=== PATIENT | male | born 1945 | race Caucasian/White ===

== ENCOUNTER 2019-02-08 09:59 | Emergency (ER) | payer OTHER ==
[2019-02-08 10:28] LABS: Absolute Lymphocytes (CBC) 1.4 K/uL (0.7-4.9); Basophils % 0.8 % (0-1.3); Hematocrit 39.9 % (39.6-49.0); Lymphocytes % 17.2 % (15.3-44.8); RBC Red Blood Cell Count 4.58 M/uL (4.33-5.43)
[2019-02-08 10:29] LABS: Protime INR 1.09
[2019-02-08] MEDS ORDERED: NA CHLORIDE 0.9% 1,000 ML ONE (10:31)
[2019-02-08 10:41] LABS: ALT/SGPT 27 U/L (12-78); AST/SGOT 16 U/L (15-37); Albumin 3.6 g/dL (3.4-5.0); Alkaline Phosphatase 97 U/L (45-117); BUN Blood Urea Nitrogen 18 mg/dL (7-18); Bicarbonate 26 mmol/L (21-32); Bilirubin Direct 0.2 mg/dL (0-0.2); Bilirubin Total 0.6 mg/dL (0.2-1.0); Glucose Level 159 mg/dL (74-106); Magnesium 1.9 mg/dL (1.8-2.4); NT PRO-BNP 105 pg/mL (<450); Potassium 3.9 mmol/L (3.5-5.1); Protein, Total 7.2 g/dL (6.4-8.2); Sodium Level 142 mmol/L (136-145); Troponin (Emerg Dept Use Only) < 0.02 ng/mL (0.0-0.045)
--- NOTE | 2019-02-08 10:46 | RAD REPORT ---
EXAM DESCRIPTION: RAD - Chest Single View - 02/08/2019 10:17 am CLINICAL HISTORY: Chest pain COMPARISON: None. TECHNIQUE: AP portable chest image was obtained 1012 hours . FINDINGS: No focal lung parenchymal process. Interstitial markings are mildly prominent. This could be baseline or a mild interstitial edema or infiltrate process. Sternotomy wires are in place. Heart and vasculature are normal. No measurable pleural effusion and no pneumothorax. No acute bony abnorma lity seen. No acute aortic findings suspected. IMPRESSION: No focal lung parenchymal process and no significant failure or volume overload. Baseline examination shows mildly prominent interstitial pattern. This could be baseline for the luisito ent or a mild interstitial edema or infiltrate.
--- NOTE | 2019-02-08 10:53 | ER ---
Nurse's Notes [facility] Name: Chandrakant Santos Age: 73 yrs Sex: Male : 1945 Arrival Date: 02/08/2019 Time: 10:03 Bed 26 Private MD: Diagnosis: Chest pain, unspecified;Dyspnea;Type 2 diabetes mellitus Presentation: 02/08 09:58 Presenting complaint: EMS states: pt states he has been having chest pressure that was tw2 uncomfortable for 5 days, no real pain but that he is stressed out about his wifes health as well, he has had 5 stents to the right coronary artery, he was given a total of 324 mg Aspirin, we gave 1 nitro SL spray and he states that relieved the pressure. EKG shows right bundle branch and so has his previous ekgs, pt is also a diabetic, vs stable. Transition of care: patient was not received from another setting of care. Onset of symptoms was February 08, 2019. Risk Assessment: Do you want to hurt yourself or someone else? Patient reports no desire to harm self or others. Initial Sepsis Screen: Does the patient meet any 2 criteria? No. Patient's initial sepsis screen is negative. Does the patient have a suspected source of infection? No. Patient's initial sepsis screen is negative. Care prior to arrival: Medication(s) given: ASA, 81 mg, x 4, Nitroglycerin, 0.4 mg SL x 1. 09:58 Method Of Arrival: EMS: [facility] tw2 09:58 Acuity: JACOBO 3 tw2 Triage Assessment: 10:00 General: Appears in no apparent distress. obese, Behavior is calm, cooperative, tw2 appropriate for age. Pain: Denies pain. EENT: No signs and/or symptoms were reported regarding the EENT system. Neuro: Level of Consciousness is awake, alert, obeys commands, Oriented to person, place, time, situation. Cardiovascular: Heart tones S1 S2 Patient's skin is warm and dry. Respiratory: Airway is patent Respiratory effort is even, unlabored, Respiratory pattern is regular, symmetrical, Breath sounds are clear bilaterally. GI: Abdomen is round non-distended, obese, Bowel sounds present X 4 quads. : Reports burning with urination, urinary frequency. Derm: No signs and/or symptoms reported regarding the dermatologic system. Musculoskeletal: Range of motion: intact in all extremities. Historical: - Allergies: 10:13 PENICILLINS; aj1 - Home Meds: 10:13 aspirin 81 mg Oral chew 1 tab once daily [Active]; atorvastatin 80 mg oral tab 1 tab aj1 once daily [Active]; carboxymethylcellulose sodium ophthalmic ophthalmic 1 drop four times a day [Active]; cetirizine 10 mg oral tab 1 tab once daily [Active]; clotrimazole 1 % Topical crea 2 times per day [Active]; empagliflozin oral 25 mg oral once daily [Active]; finasteride 5 mg oral tab 1 tab once daily [Active]; fluticasone 50 mcg/actuation nasal spsn 1 spray 2 times per day [Active]; gabapentin 300 mg oral cap 3 cap 3 times per day [Active]; insulin aspart subcutaneous 20 units subcutaneous before meals [Active]; insulin detemir subcutaneous 30 units subcutaneous twice a day [Active]; Victoza 2-El 0.6 mg/0.1 mL (18 mg/3 mL) subcutaneous pnij 1.2 mg once daily [Active]; losartan 50 mg oral tab 1 tab once daily [Active]; metformin 1,000 mg Oral tr24 1 tab once daily [Active]; metoprolol tartrate 12.5 mg Oral tab 1 tab 2 times per day [Active]; nitroglycerin 0.4 mg SL subl 1 tab every 5 minutes [Active]; omeprazole 20 mg Oral cpDR 1 cap 2 times per day [Active]; oxybutynin chloride 10 mg Oral tr24 1 tab once daily [Active]; tamsulosin 0.4 mg oral cp24 1 cap once daily [Active]; terbinafine HCl 250 mg oral tab 1 tab once daily [Active]; ticagrelor oral 90 mg oral 2 times per day [Active]; - PMHx: 10:13 Diabetes - NIDDM; neuropathy; Hypertension; CAD; Sleep Apnea; Umbilical hernia; colonic aj1 polyps; Hyperlipidemia; Diverticulitis; GERD; cardiac stents; COPD; familial hypoalphalipoproteinemia; - Immunization history:: Adult Immunizations. - Social history:: Smoking status: . - Ebola Screening: : Patient denies travel to an Ebola-affected area in the 21 days before illness onset. - Family history:: not pertinent. Screenin:06 Abuse screen: Denies threats or abuse. Nutritional screening: No deficits noted. tw2 Tuberculosis screening: No symptoms or risk factors identified. Fall Risk None identified. Assessment: 10:26 Reassessment: see triage assessment. tw2 11:25 Reassessment: Patient appears in no apparent distress at this time. No changes from tw2 previously documented assessment. Patient and/or family updated on plan of care and expected duration. Pain level reassessed. Patient is alert, oriented x 3, equal unlabored respirations, skin warm/dry/pink. 12:29 Reassessment: Patient appears in no apparent distress at this time. No changes from tw2 previously documented assessment. Patient and/or family updated on plan of care and expected duration. Pain level reassessed. Patient is alert, oriented x 3, equal unlabored respirations, skin warm/dry/pink. 12:52 Reassessment: Administrative approval given by Perla Carrasquillo RN at 1250. Accepting ss physician is Dr. Meeta Phillips. Patient to go to ER at [facility]. 13:54 Reassessment: Patient appears in no apparent distress at this time. No changes from tw2 previously documented assessment. Patient and/or family updated on plan of care and expected duration. Pain level reassessed. Patient is alert, oriented x 3, equal unlabored respirations, skin warm/dry/pink. Vital Signs: 10:13 Temp 97.6(TE); tw2 10:16 BP 113 / 64; Pulse 69; Resp 17; Pulse Ox 97% on R/A; tw2 10:25 Weight 112.04 kg (R); Height 5 ft. 8 in. (172.72 cm); Pain 0/10; tw2 11:25 BP 125 / 57; Pulse 54; Resp 17; Pulse Ox 100% on R/A; tw2 12:29 BP 125 / 57; Pulse 73; Resp 17; Pulse Ox 97% on R/A; tw2 13:30 BP 134 / 66; Pulse 57; Resp 17; Pulse Ox 99% on R/A; tw2 10:25 Body Mass Index 37.56 (112.04 kg, 172.72 cm) tw2 ED Course: 09:59 Bed in low position. Call light in reach. Side rails up X 1. cardiac monitor on. Pulse tw2 ox on. NIBP on. 10:03 Patient arrived in ED. aj1 10:05 Sirena Willard, RN is Primary Nurse. tw2 10:05 Arm band placed on. EKG completed in triage. Results shown to MD. tw2 10:05 Inserted saline lock: 20 gauge in right antecubital area, using aseptic technique. tw2 Blood collected. 10:08 EKG done, by ecologist technician. reviewed by Josue Stern MD. tc 10:13 Triage completed. tw2 10:13 Josue Stern MD is Attending Physician. [facility] 10:24 XRAY Chest (1 view) In Process Unspecified. EDMS 13:12 Report given to CARMELO Ruiz at [place] [facility] at this time. tw2 13:54 No provider procedures requiring assistance completed. Patient transferred, IV remains tw2 in place. Administered Medications: 10:46 Drug: NS 0.9% 1000 ml Route: IV; Rate: 125 ml/hr; Site: right antecubital; tw2 13:56 Follow up: IV Status: Infusion continued upon transfer tw2 11:14 Drug: Pepcid 20 mg Route: IVP; Site: right antecubital; tw2 13:55 Follow up: Response: No adverse reaction tw2 11:15 Drug: Lovenox 1 mg/kg Route: Sub-Q; Site: right lower abdomen; tw2 13:55 Follow up: Response: No adverse reaction tw2 Outcome: 10:50 ER care complete, transfer ordered by . [facility] 13:54 Transferred by ground EMS to [facility] tw2 13:54 Condition: stable 13:54 Instructed on the need for transfer. 13:55 Patient left the ED. tw2 Signatures: Dispatcher [employer] EDMS Christina Bowen, RN RN aaron1 Josue Stern MD MD cha Smirch, Shelby RN RN Joan Harrison, customer experience manager EKG Ttc Sirena Willard, CARMELO RN tw2
--- NOTE | 2019-02-08 10:54 | EDPHYS ---
Physician Documentation [facility] Name: Chandrakant Santos Age: 73 yrs Sex: Male : 1945 Arrival Date: 02/08/2019 Time: 10:03 Bed 26 Private MD: ED Physician Josue Stern HPI: 02/08 10:47 This 73 yrs old Male presents to ER via EMS with complaints of Chest Pain > balbina 28 y/o. 10:47 The patient or guardian reports chest pain that is located primarily in the anterior balbina chest wall, bilaterally. Onset: 2 day(s) ago. The pain does not radiate. Associated signs and symptoms: The patient has no apparent associated signs or symptoms. The chest pain is described as a pressure. Severity of pain: At its worst the pain was mild moderate in the emergency department the pain has resolved and did so just prior to arrival. The patient has experienced similar episodes in the past, multiple times. Historical: - Allergies: 10:13 PENICILLINS; aj1 - Home Meds: 10:13 aspirin 81 mg Oral chew 1 tab once daily [Active]; atorvastatin 80 mg oral tab 1 tab aj1 once daily [Active]; carboxymethylcellulose sodium ophthalmic ophthalmic 1 drop four times a day [Active]; cetirizine 10 mg oral tab 1 tab once daily [Active]; clotrimazole 1 % Topical crea 2 times per day [Active]; empagliflozin oral 25 mg oral once daily [Active]; finasteride 5 mg oral tab 1 tab once daily [Active]; fluticasone 50 mcg/actuation nasal spsn 1 spray 2 times per day [Active]; gabapentin 300 mg oral cap 3 cap 3 times per day [Active]; insulin aspart subcutaneous 20 units subcutaneous before meals [Active]; insulin detemir subcutaneous 30 units subcutaneous twice a day [Active]; Victoza 2-El 0.6 mg/0.1 mL (18 mg/3 mL) subcutaneous pnij 1.2 mg once daily [Active]; losartan 50 mg oral tab 1 tab once daily [Active]; metformin 1,000 mg Oral tr24 1 tab once daily [Active]; metoprolol tartrate 12.5 mg Oral tab 1 tab 2 times per day [Active]; nitroglycerin 0.4 mg SL subl 1 tab every 5 minutes [Active]; omeprazole 20 mg Oral cpDR 1 cap 2 times per day [Active]; oxybutynin chloride 10 mg Oral tr24 1 tab once daily [Active]; tamsulosin 0.4 mg oral cp24 1 cap once daily [Active]; terbinafine HCl 250 mg oral tab 1 tab once daily [Active]; ticagrelor oral 90 mg oral 2 times per day [Active]; - PMHx: 10:13 Diabetes - NIDDM; neuropathy; Hypertension; CAD; Sleep Apnea; Umbilical hernia; colonic aj1 polyps; Hyperlipidemia; Diverticulitis; GERD; cardiac stents; COPD; familial hypoalphalipoproteinemia; - Immunization history:: Adult Immunizations. - Social history:: Smoking status: . - Ebola Screening: : Patient denies travel to an Ebola-affected area in the 21 days before illness onset. - Family history:: not pertinent. ROS: 10:47 Constitutional: Negative for fever, chills, and weight loss, Eyes: Negative for injury, balbina pain, redness, and discharge, ENT: Negative for injury, pain, and discharge, Neck: Negative for injury, pain, and swelling, Respiratory: Negative for shortness of breath, cough, wheezing, and pleuritic chest pain, Abdomen/GI: Negative for abdominal pain, nausea, vomiting, diarrhea, and constipation, Back: Negative for injury and pain, : Negative for injury, bleeding, discharge, and swelling, MS/Extremity: Negative for injury and deformity, Skin: Negative for injury, rash, and discoloration, Neuro: Negative for headache, weakness, numbness, tingling, and seizure, Psych: Negative for depression, anxiety, suicide ideation, homicidal ideation, and hallucinations, Allergy/Immunology: Negative for hives, rash, and allergies, Endocrine: Negative for neck swelling, polydipsia, polyuria, polyphagia, and marked weight changes, Hematologic/Lymphatic: Negative for swollen nodes, abnormal bleeding, and unusual bruising. 10:47 Cardiovascular: Positive for chest pain. Exam: 10:47 Constitutional: This is a well developed, well nourished patient who is awake, alert, balbina and in no acute distress. Head/Face: Normocephalic, atraumatic. Eyes: Pupils equal round and reactive to light, extra-ocular motions intact. Lids and lashes normal. Conjunctiva and sclera are non-icteric and not injected. Cornea within normal limits. Periorbital areas with no swelling, redness, or edema. ENT: Nares patent. No nasal discharge, no septal abnormalities noted. Tympanic membranes are normal and external auditory canals are clear. Oropharynx with no redness, swelling, or masses, exudates, or evidence of obstruction, uvula midline. Mucous membranes moist. Neck: Trachea midline, no thyromegaly or masses palpated, and no cervical lymphadenopathy. Supple, full range of motion without nuchal rigidity, or vertebral point tenderness. No Meningismus. Chest/axilla: Normal chest wall appearance and motion. Nontender with no deformity. No lesions are appreciated. Respiratory: Lungs have equal breath sounds bilaterally, clear to auscultation and percussion. No rales, rhonchi or wheezes noted. No increased work of breathing, no retractions or nasal flaring. Abdomen/GI: Soft, non-tender, with normal bowel sounds. No distension or tympany. No guarding or rebound. No evidence of tenderness throughout. Back: No spinal tenderness. No costovertebral tenderness. Full range of motion. Male : Normal genitalia with no discharge or lesions. Skin: Warm, dry with normal turgor. Normal color with no rashes, no lesions, and no evidence of cellulitis. MS/ Extremity: Pulses equal, no cyanosis. Neurovascular intact. Full, normal range of motion. Neuro: Awake and alert, GCS 15, oriented to person, place, time, and situation. Cranial nerves II-XII grossly intact. Motor strength 5/5 in all extremities. Sensory grossly intact. Cerebellar exam normal. Normal gait. Psych: Awake, alert, with orientation to person, place and time. Behavior, mood, and affect are within normal limits. 10:47 Cardiovascular: Rate: normal, Rhythm: regular, Pulses: Pulses are 4+ in bilateral radial, brachial, femoral, popliteal, posterior tibial and and dorsalis pedis arteries.. Heart sounds: normal, normal S1and S2, no S3 or S4, no murmur, no rub, no gallop, Edema: is not appreciated, JVD: is not appreciated. Vital Signs: 10:13 Temp 97.6(TE); tw2 10:16 BP 113 / 64; Pulse 69; Resp 17; Pulse Ox 97% on R/A; tw2 10:25 Weight 112.04 kg (R); Height 5 ft. 8 in. (172.72 cm); Pain 0/10; tw2 11:25 BP 125 / 57; Pulse 54; Resp 17; Pulse Ox 100% on R/A; tw2 12:29 BP 125 / 57; Pulse 73; Resp 17; Pulse Ox 97% on R/A; tw2 13:30 BP 134 / 66; Pulse 57; Resp 17; Pulse Ox 99% on R/A; tw2 10:25 Body Mass Index 37.56 (112.04 kg, 172.72 cm) tw2 MDM: 10:13 Patient medically screened. [facility] 10:49 Data reviewed: vital signs, nurses notes, lab test result(s), EKG, radiologic studies, balbina plain films. 02/08 10:03 Order name: Basic Metabolic Panel; Complete Time: 10:46 02/08 10:03 Order name: CBC with Diff; Complete Time: 10:46 02/08 10:03 Order name: LFT's; Complete Time: 10:46 02/08 10:03 Order name: Magnesium; Complete Time: 10:46 02/08 10:03 Order name: NT PRO-BNP; Complete Time: 10:46 02/08 10:03 Order name: PT-INR; Complete Time: 10:46 02/08 10:03 Order name: Troponin (emerg Dept Use Only); Complete Time: 10:46 02/08 10:03 Order name: XRAY Chest (1 view) 02/08 10:03 Order name: EKG; Complete Time: 10:05 02/08 10:03 Order name: Cardiac monitoring; Complete Time: 10:14 02/08 12:47 Order name: Urine Dipstick--Ancillary (enter results) 02/08 10:03 Order name: EKG - Nurse/Tech; Complete Time: 10:14 02/08 10:03 Order name: IV Saline Lock; Complete Time: 10:14 02/08 10:03 Order name: Labs collected and sent; Complete Time: 10:14 02/08 10:03 Order name: O2 Per Protocol; Complete Time: 10:14 02/08 10:03 Order name: O2 Sat Monitoring; Complete Time: 10:14 aj1 02/08 10:15 Order name: Urine Dipstick-Ancillary (obtain specimen); Complete Time: 12:43 [facility] Administered Medications: 10:46 Drug: NS 0.9% 1000 ml Route: IV; Rate: 125 ml/hr; Site: right antecubital; tw2 13:56 Follow up: IV Status: Infusion continued upon transfer tw2 11:14 Drug: Pepcid 20 mg Route: IVP; Site: right antecubital; tw2 13:55 Follow up: Response: No adverse reaction tw2 11:15 Drug: Lovenox 1 mg/kg Route: Sub-Q; Site: right lower abdomen; tw2 13:55 Follow up: Response: No adverse reaction tw2 Disposition: 02/08/19 10:50 Transfer ordered to [facility]. Diagnosis are Chest pain, unspecified, Dyspnea, Type 2 diabetes mellitus. - Reason for transfer: Higher level of care. - Accepting physician [place] to [place]. - Condition is Fair. - Problem is new. - Symptoms have improved. Signatures: Dispatcher [employer] EDChristina Velasquez, CARMELO RN aj1 Josue Stern MD MD cha Wise, Tara, RN RN tw2 Corrections: (The following items were deleted from the chart) 13:55 10:50 02/08/2019 10:50 Transfer ordered to [address] Diagnosis is Chest pain, unspecified; Dyspnea; Type 2 diabetes mellitus. Reason for transfer: Higher level of care. Accepting physician is to [place]. Condition is Fair. Problem is new. Symptoms have improved. balbina
[2019-02-08] MEDS ORDERED: FAMOTIDINE 20 MG/2 ML VIAL IV ONE (11:11)
[2019-02-08] MEDS ORDERED: ENOXAPARIN 100 MG/ML SYR SQ ONE (11:11)
[2019-02-08 14:57] LABS: Urine Blood 2+ (NEG); Urine Glucose 2+ (NEG); Urine Protein NEGATIVE (NEG); Urine Specific Gravity 1.015 (1.005-1.030)
--- NOTE | 2019-02-08 17:35 | EKG ---
Test Date: 2019-02-08 Test Time: 10:05:20 Weight Control Engineer: SHERIF MEASUREMENT RESULTS: Intervals: Rate: 74 MS: 150 QRSD: 134 QT: 436 QTc: 483 [place]: P: -26 MS: 150 QRS: -50 T: 30 INTERPRETIVE STATEMENTS: Normal sinus rhythm Right bundle branch block Left anterior fascicular block Bifascicular block Inferior infarct, age undetermined Abnormal ECG Compared to ECG 02/15/2007 12:45:14 Right bundle-branch block now present Left anterior fascicular block now present Bifascicular block now present Myocardial infarct finding still present Electronically Signed On 02-08-19 17:33:48 CDT by Olivier Nuñez
== END 2019-02-08 13:55 ==
LOC: ER 09:59
DX: R07.9 Chest pain, unspecified (principal); R06.00 Dyspnea, unspecified; E11.9 Type 2 diabetes mellitus without complications; I10 Essential (primary) hypertension; I25.10 Atherosclerotic heart disease of native coronary artery without angina pectoris; K21.9 Gastro-esophageal reflux disease without esophagitis; J44.9 Chronic obstructive pulmonary disease, unspecified; E78.5 Hyperlipidemia, unspecified; Z88.0 Allergy status to penicillin; Z95.5 Presence of coronary angioplasty implant and graft
CPT/HCPCS: 96361; 93005; 85025; 80048; 36415; 83735; 85610; 80076; 81003; 84484; 83880; 71045; 96372; 96374; 99285; J1650; J7030

== ENCOUNTER 2025-03-17 10:37 | Emergency (ER) | payer OTHER ==
--- OUTSIDE RECORDS SUMMARY | 2025-03-17 10:40 | XMS REPORT | Continuity of Care Document ---
Author Name Unknown Address [address] [facility] [address] [place] [address] [facility] Address [address] [facility] [place] [address] Care Team Providers Care Exchange Consultant Name Role Phone [facility] Primary Car e Physician MARTA THOMAS Attending Clinician Unavail able FATOU Attending Clinician Unavailable Doctor Unassigned, [place] Attending Clinician U Marta Myles MD Attending Clinician Hector Larios CRNA Attending Clinician [phone] Kiran GREWAL, Evelia Tejeda Attending Clinician + MARTA THOMAS Admitting Clinician Unavail able FATOU Admitting Clinician Unavailable Marta Thomas MD Admitting Clinician Payers Payer Name Policy Type Policy Number Effective Date Expirati on Date Source MEDICARE PART A \\T\\ [id number] 2008 00:00:00 Problems Condition Name Condition Details Condition Category Status Onset Date Resolution Date Last Treatment Date Treating Clinician Comments Source Umbilical hernia without obstructio n and without gangrene Umbilical hernia without obstructio n and without gangrene Disease Active 08-19 00:00: 00 Overview: Formattin g of this note might be different from the original. Added automatic ally from request for surgery [id number] [facility] Allergies, Adverse Reactions, Alerts Allergy Name Allergy Type Status Severity Reaction(s) Onset Date Inactive Date Treating Clinician Comments Source Penicill in Propensi ty to adverse reaction s to drug Active Swelling 08-16 00:00: 00 [facility] PENICILL IN DRUG INGREDI Active High Rash 08-16 00:00: 00 [facility] Social History Social Habit Start Date Stop Date Quantity Comments Source History of tobacco use Current smoker [facility] Exposure to SARS-CoV-2 (event) 2021-12-03 00:00:00 2021-12-13 08:58:[address] [facility] Tobacco use and exposure 2021-09-03 00:00:00 2021-09-03 00:00:00 Former smokeless tobacco user [facility] Sex Ass[birth year] At 1945 00:00:00 1945 00:00:[address] [facility] Smoking Status Start Date Stop Date Source Ex-smoker 2021-09-03 00:00:00 2021-09[facility]03 [facility] Ordered Medication Name Filled Medication Name Start Date Stop Date Current Medication? Ordering Clinician Indication Dosage Frequency Signature (SIG) Comments Components Source metFORMIN 500 mg tablet 12-13 09:11: 27 Yes 500mg Take 500 mg by mouth daily. [facility] losartan 50 mg tablet 12-13 09:11: 27 Yes 50mg Take 50 mg by mouth daily. [facility] traMADoL 50 mg tablet 09-06 00:00: 00 Yes [id number] 50mg Take 1 tablet by mouth every 6 (six) hours as needed for Pain (scale 7-10). Indication s: acute pain [facility] finasteride 5 mg tablet 07-11 00:00: 00 Yes TAKE ONE TABLET BY MOUTH DAILY FOR PROSTATE. *DO NOT CRUSH* [facility] insulin aspart U-100 100 unit/mL (3 mL) injection 07-11 00:00: 00 Yes INJECT 15 UNITS UNDER THE SKIN THREE TIMES A DAY BEFORE MEALS 5 MINUTES BEFORE MEALS FOR DIABETES. DO NOT ADMINISTER IF A MEAL IS MISSED [facility] Insulin Detemir 100 unit/mL (3 mL) injection 07-11 00:00: 00 Yes INJECT 33 UNITS UNDER THE SKIN TWICE A DAY [facility] omeprazole 20 mg capsule 2- 00:00: 00 Yes TAKE ONE CAPSULE BY MOUTH TWICE A DAY FOR STOMACH. *DO NOT CRUSH* [facility] empaglifloz in 25 mg Tab 07-10 00:00: 00 Yes .5{tbl} Take 0.5 tablets by mouth daily. [facility] ketotifen 0.025 % (0.035 %) ophthalmic solution 07-10 00:00: 00 Yes INSTILL 1 DROP IN BOTH EYES TWICE A DAY FOR EYE IRRITATION [facility] furosemide 20 mg tablet 2020-06 1-24 00:00: 00 Yes TAKE ONE TABLET BY MOUTH DAILY NEEDED A DIURETIC OR "WATER PILL" [facility] semaglutide 1 mg/dose (4 mg/3 mL) PnIj 2020-06 0-06 00:00: 00 Yes INJECT 1MG UNDER THE SKIN EVERY WEEK [facility] aspirin 81 mg chewable tablet 2020-06 0 00:00: 00 Yes CHEW ONE TABLET BY MOUTH DAILY TO PREVENT BLOOD CLOT [facility] cetirizine 10 mg tablet 2020-06 0 00:00: 00 Yes TAKE ONE TABLET BY MOUTH DAILY NEEDED FOR ALLERGIES [facility] isosorbide mononitrate 60 mg 24 hr tablet 02-27 00:00: 00 Yes TAKE ONE TABLET BY MOUTH DAILY TO PREVENT CHEST PAIN. *DO NOT CRUSH* [facility] gabapentin 400 mg capsule 01-04 00:00: 00 Yes TAKE THREE CAPSULES BY MOUTH THREE TIMES A DAY FOR PAIN OR ANXIETY. TAKE AFTER COMPLETION OF 100MG CAPSULES - IMMEDIATEL Y REPORT MOOD AND BEHAVIOR CHANGES [facility] oxybutynin 10 mg 24 hr tablet 01-04 00:00: 00 Yes TAKE ONE TABLET BY MOUTH DAILY FOR BLADDER. *DO NOT CRUSH* [facility] ticagrelor 90 mg tablet 6-17 00:00: 00 Yes TAKE ONE TABLET BY MOUTH TWICE A DAY TO PREVENT CLOTS *DO NOT MISS ANY DOSES AND ORDER REFILLS ON TIME* [facility] acetaminoph en 500 mg tablet 09-05 00:00: 00 Yes TAKE ONE TABLET BY MOUTH EVERY 6 HOURS NEEDED FOR PAIN OR FEVER [facility] atorvastati n 80 mg tablet 09-05 00:00: 00 Yes TAKE ONE-HALF TABLET BY MOUTH DAILY FOR CHOLESTERO L [facility] Carboxymeth ylcellulose Sodium 1 % DLGl 09-05 00:00: 00 Yes APPLY 1 DROP TO BOTH EYES FOUR TIMES A DAY [facility] lidocaine 5 % (700 mg/patch) patch 09-05 00:00: 00 Yes APPLY 1 PATCH TO THE SKIN DAILY NEEDED FOR UP TO 12 HOURS IN 24 HOUR PERIOD. REMOVE PATCH IF IRRITATION OCCURS. APPLY TO AFFECTED AREA [facility] oxybutynin XL 5 mg 24 hr tablet 09-05 00:00: 00 Yes TAKE ONE TABLET BY MOUTH EVERY 8 HOURS NEEDED FOR BLADDER. *DO NOT CRUSH* [facility] fluticasone propionate 50 mcg/actuati on nasal spray 09-01 00:00: 00 Yes INSTILL 2 SPRAYS IN EACH NOSTRIL TWICE A DAY NEEDED FOR ALLERGIES [facility] Vital Signs Vital Name Observation Time Observation Value Comments S oursima Systolic blood pressure 2021-12-13 14:09:00 133 mm[Hg] [facility] Diastolic blood pressure 2021-12-13 14:09:00 74 mm[Hg] [facility] Heart rate 2021-12-13 14:09:00 84 /min [facility] Body temperature 2021-12-13 14:09:[address] [facility] Respiratory rate 2021-12-13 14:09:00 18 /min [facility] Body weight 2021-12-13 14:09:00 112.038 kg [facility] BMI 2021-12-13 14:09:00 36.48 kg/m2 [facility] Procedures Procedure Date / Time Performed Performing Clinicia n Source EXTERNAL PROVIDER RECORDS 2022-04-21 06:01:00 Doctor Unassigned, [place] [facility] Encounters Start Date/Time End Date/Time Encounter Type Admission Type Attending [facility] Facility Care Department Encounter ID Source 2021-09-04 07:55:14 Outpatient MARTA CRAIG [facility] [id number] [facility] 2021-08-30 17:10:25 Outpatient MARTA CRAIG [facility] [id number] [facility] 2022-04-21 00:00:00 2022-04-21 00:00:00 Orders Only Doctor Unassigned, [place] [facility] 1..840.114 350.1.13.10 4.2.7.2.686 [id number] [facility] 2021-12-13 09:00:00 2021-12-13 09:29:20 Outpatient MARTA CRAIG [facility] [id number] [facility] 2021-12-13 09:00:00 2021-12-13 09:29:20 [facility] 1..840.114 350.1.13.10 4.2.7.2.686 [id number] [facility] 2021-12-13 09:00:00 2021-12-13 09:29:20 Outpatient MARTA CRAIG [facility] [id number] [facility] 2021-10-18 10:30:00 2021-10-18 10:30:00 Office Visit Marta Thomas [facility] 1..840.114 350.1.13.10 4.2.7.2.686 [id number] [facility] 2021-10-18 10:30:00 2021-10-18 10:04:05 Outpatient MARTA CRAIG [facility] [id number] [facility] 2021-10-08 00:00:00 2021-10-08 00:00:00 Orders Only Doctor Unassigned, [place] [facility] 1..840.114 350.1.13.10 4.2.7.2.686 [id number] [facility] 2021-09-19 00:00:00 2021-09-19 00:00:00 Orders Only Doctor Unassigned, [place] [facility] 1.114 350.1.13.10 4.2.7.2.686 [id number] [facility] 2021-09-13 10:30:00 2021-09-13 11:03:07 Outpatient MARTA CRAIG [facility] [id number] [facility] 2021-09-13 10:30:00 2021-09-13 11:03:07 Office Visit Marta Thomas [facility] 1..114 350.1.13.10 4.2.7.2.686 [id number] [facility] 2021-09-06 07:48:00 2021-09-06 12:16:00 Outpatient MARTA CRAIG [facility] [id number] [facility] 2021-09-06 07:48:00 2021-09-06 12:16:00 Hospital Encounter Marta Thomas [facility] 1..114 350.1.13.10 4.2.7.2.686 [id number] [facility] 2021-09-06 07:48:00 2021-09-06 12:16:00 Outpatient MARTA CRAIG [facility] [id number] [facility] 2021-09-06 07:48:00 2021-09-06 12:16:00 Outpatient MARTA CRAIG [facility] [id number] [facility] 2021-09-06 09:27:00 2021-09-06 11:26:00 Anesthesia Event Hector Larios Chelsea Al[place]er [facility] 1.84.114 350.1.13.10 4.2.7.2.686 [id number] [facility] 2021-09-06 08:30:00 2021-09-06 10:30:00 Surgery Marta Thomas [facility] [place] 1.2.840.114 350.1.13.10 4.2.7.2.686 [id number] [facility] 2021-09-04 00:00:00 2021-09-04 00:00:00 Orders Only Doctor Unassigned, [place] [facility] 1.2.840.114 350.1.13.10 4.2.7.2.686 [id number] [facility] 2021-09-03 00:00:00 2021-09-03 00:00:00 Telephone Marta Thomas [facility] 1.2.840.114 350.1.13.10 4.2.7.2.686 [id number] [facility] 2021-09-02 00:00:00 2021-09-02 00:00:[address] [facility] 1.2.840.114 350.1.13.10 4.2.7.2.686 [id number] [facility] 2021-08-16 09:00:00 2021-08-16 10:03:09 Outpatient R MARTA THOMAS [facility] [id number] [facility] 2021-08-16 09:00:00 2021-08-16 10:03:09 Office Visit Marta Thomas [facility] 1.2.840.114 350.1.13.10 4.2.7.2.686 [id number] [facility] 2021-08-16 09:00:00 2021-08-16 10:03:09 Outpatient R MARTA THOMAS [facility] [id number] [facility] 2021-08-16 09:00:00 2021-08-16 10:03:09 Outpatient Regla THOMASMARTA [facility] [id number] [facility] 2021-08-16 09:00:00 2021-08-16 10:03:09 Outpatient MARTA CRAIG [facility] [id number] [facility] 2021-08-16 09:00:00 2021-08-16 10:03:09 Outpatient Regla THOMAS [facility] [id number] [facility] 2021-08-16 00:00:00 2021-08-16 00:00:00 Orders Only Doctor Unassigned, [place] [facility] 1..840.114 350.1.13.10 4.2.7.2.686 [id number] [facility] 2021-08-16 00:00:00 2021-08-16 00:00:00 Prep For Surgery Marta Thomas [facility] 1..840.114 350.1.13.10 4.2.7.2.686 [id number] [facility] 2021-08-05 00:00:00 2021-08-05 00:00:00 Orders Only Doctor Unassigned, [place] [facility] 1..840.114 350.1.13.10 4.2.7.2.686 [id number] [facility] 2021-06-21 10:45:00 2021-06-21 10:45:00 Outpatient MARTA CRAIG [facility] [id number] [facility]
[2025-03-17 11:39] LABS: Absolute Lymphocytes (CBC) 1.0 K/uL (0.7-4.9); Hematocrit 38.1 % (39.6-49.0); Hemoglobin 12.6 g/dL (13.6-17.9); MCH 28.2 pg (27.0-35.0); MCHC 33.2 g/dL (32.0-36.0); MCV 85.0 fL (80-100); MPV 8.6 fL (7.6-11.3); Nucleated RBC Absolute Count 0.0 (0-0); Nucleated Red Blood Cells % 0.1 % (0-0); RBC Red Blood Cell Count 4.48 M/uL (4.33-5.43); White Blood Count 7.80 thou/uL (4.3-10.9)
[2025-03-17 12:00] LABS: ALT/SGPT 23.0 U/L (16-61); AST/SGOT 15.0 U/L (15-37); Albumin 3.1 g/dL (3.4-5.0); Albumin/Globulin Ratio 0.9 (1.1-1.8); Alkaline Phosphatase 70.0 U/L (45-117); Anion Gap 9.7 mEq/L (5.0-15.0); BUN Blood Urea Nitrogen 13.0 mg/dL (7-18); Bilirubin Indirect, Calculated 1.3 mg/dL (0.2-0.8); Globulin 3.3 g/dL (2.3-3.5); Glucose Level 116.0 mg/dL (74-106); NT PRO-BNP 242.0 pg/mL (<450); Potassium 3.7 mEq/L (3.5-5.1); Troponin High Sensitivity 7.5 pg/mL (<58.9)
[2025-03-17 12:07] LABS: Influenza A Ag Negative; Influenza B Ag Negative; SARS-CoV-2 Antigen Rapid Res Negative (Negative)
--- NOTE | 2025-03-17 13:44 | EDPHYS ---
Physician Documentation [facility] Name: Chandrakant Santos Age: 79 yrs Sex: Male : 1945 Arrival Date: 03/17/2025 Time: 10:37 Bed 18 Private MD: ED Physician Josue Stern HPI: 03/17 10:42 This 79 yrs old Male presents to ER via Unassigned with complaints of Flu Symptoms. [facility] 10:42 79-year-old male with a past medical history of diabetes, CHF, 5 cardiac stents, and 2 [facility] coronary bypasses presents to the ER for flulike symptoms for the past 3 days. The patient reports that he has been intermittently " sick" for the past month but that 3 days ago he developed nasal congestion, productive cough, fever, malaise, purulent nasal discharge, and bilateral rib pain. He states that he took NyQuil this morning, went to the [place] clinic, and they told him that his blood pressure was low. They advised that he follow-up in the ER. Denies chest pain.. Historical: - Allergies: 11:04 PENICILLINS; iw - PMHx: 11:04 CAD; cardiac stents; Colonic polyps; COPD; Diabetes - NIDDM; Diverticulitis; familial iw hypoalphalipoproteinemia; GERD; Hyperlipidemia; Hypertension; neuropathy; Sleep Apnea; Umbilical hernia; - PSHx: 11:04 Coronary artery bypass graft; cardiac stents; iw - Immunization history:: Adult Immunizations Pneumococcal vaccine is up to date, Flu vaccine is not up to date. - Infectious Disease History:: Denies. - Social history:: Smoking status: Patient/guardian denies using tobacco, but has a distant history of tobacco abuse. ROS: 10:42 Constitutional: Per HPI 7 Exam: 10:42 Head/Face: Normocephalic, atraumatic. Eyes: Pupils equal round and reactive to light, 7 extra-ocular motions intact. Lids and lashes normal. Conjunctiva and sclera are non-icteric and not injected. Cornea within normal limits. Periorbital areas with no swelling, redness, or edema. Neck: Trachea midline, no thyromegaly or masses palpated, and no cervical lymphadenopathy. Supple, full range of motion without nuchal rigidity, or vertebral point tenderness. No Meningismus. Cardiovascular: Regular rate and rhythm with a normal S1 and S2. No gallops, murmurs, or rubs. Normal PMI, no JVD. No pulse deficits. Abdomen/GI: Soft, non-tender, with normal bowel sounds. No distension or tympany. No guarding or rebound. No evidence of tenderness throughout. Back: No spinal tenderness. No costovertebral tenderness. Full range of motion. Skin: Warm, dry with normal turgor. Normal color with no rashes, no lesions, and no evidence of cellulitis. MS/ Extremity: Pulses equal, no cyanosis. Neurovascular intact. Full, normal range of motion. Neuro: Awake and alert, GCS 15, oriented to person, place, time, and situation. Motor strength 5/5 in all extremities. Sensory grossly intact. Normal gait. 10:42 Constitutional: The patient appears alert, awake, obviously ill, 10:42 ENT: Nose: nasal drainage, that is moderate, and is seen coming from both nares, that is purulent, Posterior pharynx: pooling of secretions, that are moderate, 10:42 Respiratory: the patient does not display signs of respiratory distress, Respirations: normal, Breath sounds: rales, that are mild, are located in both bases, Vital Signs: 11:02 BP 98 / 57; Pulse 65; Resp 18; Temp 97.9; Pulse Ox 97% on R/A; Weight 109.77 kg; Height iw 5 ft. 8 in. ; 12:30 BP 101 / 49; Pulse 67; Resp 18; Pulse Ox 94% ; rg5 13:00 BP 113 / 58; Pulse 63; Resp 18; Pulse Ox 94% ; rg5 13:38 BP 112 / 97; Pulse 61; Resp 18; Pulse Ox 95% ; rg5 11:02 Body Mass Index 36.80 (109.77 kg, 172.72 cm) iw MDM: 10:42 Medical Screening Exam initiated jh7 16:53 Differential diagnosis: viral Infection, bacterial infection, bronchitis, pneumonia CHF 7 exacerbation, COPD, COVID, influenza. Data reviewed: vital signs, nurses notes, lab test result(s), EKG, radiologic studies, plain films. I considered the following discharge prescriptions or medication management in the emergency department Medications were administered in the Emergency Department. See MAR. Independent interpretation of the following test(s) in the Emergency Department EKG: See my EKG interpretation above X-Ray: My interpretation is Mild CHF with no evidence of pneumonia. Historians other than the Patient: Spouse/Significant Other: . Care significantly affected by the following chronic conditions: Diabetes, Hypertension, Congestive Heart Failure. Counseling: I had a detailed discussion with the patient and/or guardian regarding the historical points, exam findings, and any diagnostic results supporting the discharge/admit diagnosis, lab results, radiology results, to return to the emergency department if symptoms worsen or persist or if there are any questions or concerns that arise at home. Special discussion: Based on the history and exam findings, there is no indication for further emergent testing or inpatient evaluation. I discussed with the patient/guardian the need to see the grain elevator worker for further evaluation of the symptoms. 16:56 ED course: The patient and his requested their discharge paperwork before chest 7 x-ray was resulted due to the patient just wanting to go home and rest. Called them as soon as the results were reported and advised follow-up with cardiology since the patient is not on any diuretics at this time.. 03/17 10:56 Order name: Basic Metabolic Panel; Complete Time: 12:17 [facility] 03/17 10:56 Order name: CBC with Diff; Complete Time: 12:17 [facility] 03/17 10:56 Order name: LFT's; Complete Time: 12:17 [facility] 03/17 10:56 Order name: NT PRO-BNP; Complete Time: 12:17 [facility] 03/17 10:56 Order name: Troponin HS; Complete Time: 12:17 [facility] 03/17 10:56 Order name: COVID-19 Ag + Flu A+B Ag; Complete Time: 12:17 [facility] 03/17 10:56 Order name: XRAY Chest (1 view); Complete Time: 16:52 [facility] 03/17 10:56 Order name: Cardiac monitoring; Complete Time: 11:30 [facility] 03/17 10:56 Order name: EKG - Nurse/Tech; Complete Time: 11:30 [facility] 03/17 10:56 Order name: IV Saline Lock; Complete Time: 11:30 [facility] 03/17 10:56 Order name: Labs collected and sent; Complete Time: 11:30 [facility] 03/17 10:56 Order name: O2 Per Protocol; Complete Time: 11:30 [facility] 03/17 10:56 Order name: O2 Sat Monitoring; Complete Time: 11:30 [facility] EC:16 Rate is 61 beats/min. Rhythm is regular. QRS [employer] is Normal. Left axis deviation noted. [facility] ME interval is normal. QRS interval is normal. QT interval is normal. No Q waves. T waves are Normal. No ST changes noted. Clinical impression: Sinus rhythm with sinus arrhythmia and right bundle branch block. Administered Medications: No medications were administered Disposition Summary: 03/17/25 13:43 Discharge Ordered Notes: Location: Home [facility] Problem: new [facility] Symptoms: are unchanged [facility] Condition: Stable [facility] Diagnosis - Acute maxillary sinusitis [facility] - Acute bronchitis, unspecified [facility] Followup: [facility] - With: Private Physician - When: 2 - 3 days - Reason: Recheck today's complaints Discharge Instructions: - Discharge Summary Sheet [facility] - Acute Bronchitis, Adult [facility] - Sinusitis, Adult [facility] - How to Perform a Sinus Rinse [facility] Forms: - Medication Reconciliation Form [facility] - Antibiotic Education [facility] - Patient Portal Instructions [facility] - Leadership Thank You Letter [facility] Prescriptions: - albuterol sulfate 90 mcg/actuation Inhalation HFA Aerosol Inhaler - inhale 1 puff INHALATION route every 4 to 6 hours As needed as needed for [facility] shortness of breath or wheezing; 1 Each; Refills: 0, Product Selection Permitted - Tessalon Perles 100 mg Oral Capsule - take 1 capsule ORAL route every 8 hours As needed; 15 capsule; Refills: 0, [facility] Product Selection Permitted - Doxycycline Hyclate 100 mg Oral Tablet - take 1 tablet ORAL route every 12 hours; 20 tablet; Refills: 0, Product [facility] Selection Permitted Addendum: 03/22/2025 06:55 Co-signature as Attending Physician, Josue Stern MD I agree with the assessment and c hudson plan of care. Signatures: Dispatcher [employer] Josue Yi MD MD cha Williams, Irene, RN RN Carlotta Brooks FNP [employer]IEF OF [employer] [facility] Corrections: (The following items were deleted from the chart) 03/17 10:56 10:56 BASIC METABOLIC PANEL+C.LAB.BRZ ordered. EDLA EDMS 10:56 10:56 CBC+H.LAB.BRZ ordered. EDLA EDMS 10:56 10:56 HEPATIC FUNCTION+C.LAB.BRZ ordered. EDMS EDMS 10:56 10:56 PROBNP+C.LAB.BRZ ordered. EDMS EDMS 10:56 10:56 Troponin High Sensitivity+C.LAB.BRZ ordered. EDMS EDMS 10:56 10:56 COVID-19 Ag + Flu A+B Ag+I.LAB.BRZ ordered. EDMS EDMS 10:57 10:57 Chest Single View+RAD.RAD.BRZ ordered. EDMS EDMS 16:53 10:42 79-year-old male with a past medical history of diabetes, 5 cardiac stents, and 2 7 coronary bypasses presents to the ER for flulike symptoms for the past 3 days. The patient reports that he has been intermittently " sick" for the past month but that 3 days ago he developed nasal congestion, productive cough, fever, malaise, purulent nasal discharge, and bilateral rib pain. He states that he took NyQuil this morning[facility] him that his [facility] pressure was low. They advised that he follow-up in the ER. Denies chest pain.. [id number]
--- NOTE | 2025-03-17 13:44 | ER ---
Nurse's Notes [facility] Name: Chandrakant Santos Age: 79 yrs Sex: Male : 1945 Arrival Date: 03/17/2025 Time: 10:37 Bed 18 Private MD: Diagnosis: Acute maxillary sinusitis;Acute bronchitis, unspecified Presentation: 03/17 11:02 Chief complaint: Patient states: was sent from [place], BP was low, has had cough, iw congestion, fever, rib pain, symptoms off and on for 1 month, this episode came on 3 days ago. Coronavirus screen: Client presents with at least one sign or symptom that may indicate coronavirus-19. Ebola Screen: No symptoms or risks identified at this time. Initial Sepsis Screen: Does the patient meet any 2 criteria? No. Patient's initial sepsis screen is negative. Does the patient have a suspected source of infection? No. Patient's initial sepsis screen is negative. Risk Assessment: Do you want to hurt yourself or someone else? Patient reports no desire to harm self or others. Onset of symptoms was March 14, 2025. 11:02 Method Of Arrival: Ambulatory iw 11:02 Acuity: JACOBO 3 iw Historical: - Allergies: 11:04 PENICILLINS; iw - PMHx: 11:04 CAD; cardiac stents; Colonic polyps; COPD; Diabetes - NIDDM; Diverticulitis; familial iw hypoalphalipoproteinemia; GERD; Hyperlipidemia; Hypertension; neuropathy; Sleep Apnea; Umbilical hernia; - PSHx: 11:04 Coronary artery bypass graft; cardiac stents; iw - Immunization history:: Adult Immunizations Pneumococcal vaccine is up to date, Flu vaccine is not up to date. - Infectious Disease History:: Denies. - Social history:: Smoking status: Patient/guardian denies using tobacco, but has a distant history of tobacco abuse. Screenin:15 [facility] ED Fall Risk Assessment (Adult) History of falling in the last 3 months, me1 including since admission No falls in past 3 months (0 pts) Confusion or Disorientation No (0 pts) Intoxicated or Sedated No (0 pts) Impaired Gait No (0 pts) Mobility Assist Device Used No (0 pt) Altered Elimination No (0 pt) Score/Fall Risk Level 0 - 2 = Low Risk Maintained a safe environment, Provided non-skid footwear, Hourly rounding (assess needs \T\ fall precautionary measures) done. Abuse screen: Denies threats or abuse. Nutritional screening: No deficits noted. Tuberculosis screening: No symptoms or risk factors identified. Assessment: 11:15 General: Appears uncomfortable, ill, well groomed, well developed, well nourished, me1 Behavior is calm, cooperative, appropriate for age, Reports was sent from [place], BP was low, has had cough, congestion, fever, rib pain, symptoms off and on for 1 month, this episode came on 3 days ago. Pain: Complains of pain in right lateral anterior chest and left lateral anterior chest Pain does not radiate. Pain currently is 8 out of 10 on a pain scale. Quality of pain is described as sharp, Pain began 2-3 days ago. Is episodic, Aggravated by cough. Neuro: Level of Consciousness is awake, alert, obeys commands, Oriented to person, place, time, situation, Appropriate for age. Cardiovascular: Patient's skin is warm and dry. Respiratory: Reports cough that is pain with cough since 3 days ago Pain is 8 out of 10 on a pain scale. Airway is patent Respiratory effort is even, unlabored, Respiratory pattern is regular, symmetrical. GI: No signs and/or symptoms were reported involving the gastrointestinal system. Abdomen is non-distended. : No signs and/or symptoms were reported regarding the genitourinary system. EENT: Reports nasal congestion since 3 days ago. Derm: Skin is intact, is healthy with good turgor, Skin is normal. Musculoskeletal: Circulation, motion, and sensation intact. Range of motion: intact in all extremities, Reports body aches. 12:15 Reassessment: No changes from previously documented assessment. Patient and/or family rg5 updated on plan of care and expected duration. Pain level reassessed. Patient is alert, oriented x 3, equal unlabored respirations, skin warm/dry/pink. 13:30 Reassessment: Patient and/or family updated on plan of care and expected duration. Pain rg5 level reassessed. Patient is alert, oriented x 3, equal unlabored respirations, skin warm/dry/pink. Vital Signs: 11:02 BP 98 / 57; Pulse 65; Resp 18; Temp 97.9; Pulse Ox 97% on R/A; Weight 109.77 kg; Height iw 5 ft. 8 in. ; 12:30 BP 101 / 49; Pulse 67; Resp 18; Pulse Ox 94% ; rg5 13:00 BP 113 / 58; Pulse 63; Resp 18; Pulse Ox 94% ; rg5 13:38 BP 112 / 97; Pulse 61; Resp 18; Pulse Ox 95% ; rg5 11:02 Body Mass Index 36.80 (109.77 kg, 172.72 cm) ED Course: 10:42 Patient arrived in ED. al6 10:42 Carlotta Kilpatrick FNP is [facility]. jh7 10:42 Josue Setrn MD is Attending Physician. jh7 11:04 Triage completed. iw 11:05 Arm band placed on. iw 11:15 Patient has correct armband on for positive identification. Bed in low position. Call me1 light in reach. Side rails up X2. Provided Education on: POC. Verbalized understanding.. Client placed on continuous cardiac and pulse oximetry monitoring. NIBP monitoring applied. personnel monitor on. Pulse ox on. NIBP on. 11:15 No provider procedures requiring assistance completed. COVID swab sent to lab. Flu me1 and/or RSV swab sent to lab. 11:30 COVID-19 Ag + Flu A+B Ag Sent. ts3 11:30 Initial lab(s) drawn, by bobcat driver/labor, sent to lab. Inserted saline lock: 20 gauge in right ts3 antecubital area, using aseptic technique. Blood collected. Flushed with 10 mL NS. 11:31 EKG done, by technical support agent. reviewed by Carlotta MOSES. ts3 11:33 Aparna Victor, RN is Primary Nurse. me1 11:57 XRAY Chest (1 view) In Process Unspecified. EDMS 13:58 IV discontinued, bleeding controlled, No redness/swelling at site. Pressure dressing rg5 applied. Administered Medications: No medications were administered Medication: 11:15 VIS not applicable for this client. me1 Outcome: 13:43 Discharge ordered by . jh7 13:58 Discharged to home via wheelchair, rg5 13:58 Condition: stable 13:58 Discharge instructions given to patient, Instructed on discharge instructions, follow up and referral plans. Demonstrated understanding of instructions, follow-up care, Prescriptions given X 3, 13:59 Patient left the ED. rg5 Signatures: Dispatcher [employer] Kathleen Jim, RN RN iw Cralotta Kilpatrick, GREEN JOBS TRAINER GREEN JOBS TRAINER 7 Aparna Victor, RN RN me1 Waylon Cronin RN RN rg5 Renita Cortez al6 Roselyn Casillas ts3 Corrections: (The following items were deleted from the chart) 11:33 11:02 Chief complaint: Patient states: was sent from [place], BP was low, has had cough, me1 congestion, fever, rib pain, symptoms off and on for 1 month, this episode came on 3 days ago aj
[2025-03-17 14:17] VITALS: TEMP 97.9
[2025-03-17 14:22] VITALS: BP 112/97; O2SAT 95
--- NOTE | 2025-03-17 16:28 | RAD REPORT ---
EXAMINATION: ONE VIEW CHEST XR CLINICAL INDICATION: COUGH TECHNIQUE: Frontal chest projection is submitted. Examination is limited by patient positioning and t echnique. COMPARISON: 02/08/2019 FINDINGS: Mild bilateral pulmonary edema is suspected. The heart is mildly enlarged in size. No displaced fract ures identified. Sternotomy wires present. IMPRESSION: Mild CHF versus volume overload pattern is suspected.
== END 2025-03-17 13:59 | disposition home or self-care (01) ==
LOC: ER 10:37
DX: J20.9 Acute bronchitis, unspecified (principal); J01.00 Acute maxillary sinusitis, unspecified; Z11.52 Encounter for screening for COVID-19; Z95.1 Presence of aortocoronary bypass graft; Z95.818 Presence of other cardiac implants and grafts
CPT/HCPCS: 36415; 71045; 80048; 80076; 83880; 84484; 85025; 87428; 93005; 99284